=== PATIENT | male | born 1955 | race Caucasian/White ===

== ENCOUNTER 2023-12-05 15:28 | Outpatient (CLI) | payer OTHER, SELFPAY | END 2023-12-05 15:29 | disposition home or self-care (01) | PROVIDERS: PCP Family Medicine; Visit Provider Family Medicine | DX: I10 Essential (primary) hypertension (principal); Z12.5 Encounter for screening for malignant neoplasm of prostate | CPT/HCPCS: 80048; G0103 ==

== ENCOUNTER 2024-12-20 09:57 | Outpatient (CLI) | payer OTHER, SELFPAY | END 2024-12-20 09:58 | disposition home or self-care (01) | PROVIDERS: PCP Family Medicine; Visit Provider Family Medicine | DX: I10 Essential (primary) hypertension (principal) | CPT/HCPCS: 80053; 80061 ==

== ENCOUNTER 2024-12-30 12:46 | Outpatient (CLI) | payer OTHER, SELFPAY ==
--- NOTE | 2024-12-30 13:00 | CRLHL7_ITS ---
For Patients: As a result of the Century Cures Act, medical imaging exams and procedure reports are released immediately into your electronic medical record. You may view this report before your referring provider. If you have questions, please contact your health care provider. INDICATION: Headaches. COMPARISON: None. TECHNIQUE: [id number] MRA. 3D reconstructed images. FINDINGS: Bilateral carotid siphons are patent. Patent unga of Contreras with diminutive bilateral posterior communicating arteries. Tiny 2 millimeter focal outpouching arising from the cavernous segment of the right intracranial ICA directed laterally (series 3, image 99) may represent a tiny aneurysm. Visualized bilateral AFIA and MCA circulations are patent with no focal high-grade stenosis or aneurysm. Bilateral FRONT END TECHNICIAN circulations are patent with no stenosis or aneurysm. Patent left dominant vertebrobasilar system. IMPRESSION: 1. Tiny 2 millimeter focal outpouching arising from the cavernous segment of the right intracranial ICA directed laterally may represent a tiny aneurysm. Given the size this lesion, recommend interval follow-up in 6-12 months to confirm stability. 2. Remainder of the MRA head is normal. Dictated by Alex Londono MD @ 12/31/2024 11:37:20 AM (Electronically Signed)
--- NOTE | 2024-12-30 13:45 | CRLHL7_ITS ---
For Patients: As a result of the Century Cures Act, medical imaging exams and procedure reports are released immediately into your electronic medical record. You may view this report before your referring provider. If you have questions, please contact your health care provider. INDICATION: Headaches. COMPARISON: None. TECHNIQUE: Multiplanar T1, T2, FLAIR and diffusion-weighted imaging. FINDINGS: Normal brain parenchymal morphology. Scattered foci of T2/FLAIR signal hyperintensity within the white matter of both cerebral hemispheres consistent with chronic deep white matter small vessel ischemic changes or sequela migraine headache. No intracranial hemorrhage. No abnormal ventricular dilatation. Intracranial vascular flow voids are preserved. No mass effect. No midline shift. No restricted diffusion to suggest acute ischemia. No susceptibility artifact of remote hemorrhage. Bilateral orbits are unremarkable. Normal appearing sella. Visualized paranasal sinuses and mastoid air cells are unremarkable. IMPRESSION: 1. No acute intracranial abnormality 2. Normal brain parenchymal morphology. Scattered foci of T2 signal within the white matter of both cerebral hemispheres consistent with chronic deep white matter small vessel ischemic changes or sequela of migraine headache 3. No acute or chronic intracranial hemorrhage Dictated by Alex Londono MD @ 12/31/2024 11:28:25 AM (Electronically Signed)
== END 2024-12-30 12:47 | disposition home or self-care (01) ==
LOC: MRI 12:48
PROVIDERS: PCP Family Medicine; Visit Provider Family Medicine
DX: G44.82 Headache associated with sexual activity (principal); G93.9 Disorder of brain, unspecified
CPT/HCPCS: 70544; 70551